=== PATIENT | male | born 1980 | race African-American/Black ===

== ENCOUNTER 2024-01-16 19:00 | Emergency (ER) | payer MEDICAID ==
[~2024-01-16] VITALS: Ht 182.9 cm; Wt 82.0 kg
[2024-01-16] MEDS ORDERED: ALBUTEROL (0.083%) 2.5MG/3ML NEB HHN ONE (20:00)
[2024-01-16 20:20] LABS: DIFFERENTIAL COMMENT 1; HEMATOCRIT. 29.2 % (42.0-52.0); HEMOGLOBIN. 8.3 g/dL (14.0-18.0); MEAN CORPUSCULAR HEMOGLOBIN 23.5 pg (28.0-32.0); MEAN CORPUSCULAR HGB CONC 28.5 g/dL (31.0-37.0); MEAN CORPUSCULAR VOLUME 82.6 fL (80.0-94.0); MEAN PLATELET VOLUME 7.4 fl (7.4-10.4); PLATELET 312 x1000/uL (130-400); RED BLOOD CELL COUNT 3.53 mill/uL (4.7-6.1); WHITE BLOOD COUNT 11.4 x1000/uL (4.5-11.0)
[2024-01-16 20:31] LABS: ALANINE AMINOTRANSFERASE 10 IU/L (10-49); ALBUMIN 3.7 g/dL (3.2-4.8); ASPARTATE AMINOTRANSFERASE 17 IU/L (<34); BILIRUBIN TOTAL 0.6 mg/dL (0.1-1.0); CARBON DIOXIDE 38 mEq/L (21-32); CHLORIDE 96 mEq/L (98-107); CREATININE 0.7 mg/dL (0.6-1.3); GLUCOSE 97 mg/dL (70-105); POTASSIUM 4.6 mEq/L (3.5-5.1); PROTEIN TOTAL 6.4 g/dL (6.0-8.3); SODIUM 135 mEq/L (136-145); UREA NITROGEN BLOOD 13 mg/dL (9-23)
[2024-01-16 20:49] LABS: ANISOCYTOSIS 1+; PLATELET ESTIMATE NORMAL
[2024-01-16] MEDS: DEXAMETHASONE 4MG/ML 1ML VIAL IM ONE (20:49)
[2024-01-16 22:23] VITALS: PULSE 112; RESP 20; O2SAT 73
[2024-01-16] MEDS: ALBUTEROL (0.083%) 2.5MG/3ML NEB HHN ONE (22:23)
[2024-01-16] MEDS ORDERED: ALBU6.7H15 INH (22:26)
[2024-01-16] MEDS ORDERED: P50 MT (22:26)
[2024-01-17 00:25] VITALS: BP 122/75; PULSE 66; RESP 20; TEMP 98
== END 2024-01-17 00:58 | disposition home or self-care (01) ==
LOC: ER 19:00
DX: J45.901 Unspecified asthma with (acute) exacerbation (principal); F12.90 Cannabis use, unspecified, uncomplicated; J44.9 Chronic obstructive pulmonary disease, unspecified; I11.0 Hypertensive heart disease with heart failure; I50.9 Heart failure, unspecified
CPT/HCPCS: 80053; 85025; 36415; 94644; 96372; 99285; J1100; Z7610 ×4